=== PATIENT | male | born 1980 | race Two or more races ===

== ENCOUNTER 2017-03-28 18:43 | Observation (INO) | payer BC, OTHER ==
[~2017-03-28] VITALS: Ht 172.7 cm; Wt 72.0 kg
[2017-03-28 21:30] LABS: BASOPHILS # (AUTO) 0.04 x10^3/uL (0-0.1); BASOPHILS % (AUTO) 1 % (0-1); EOSINOPHILS # (AUTO) 0.24 x10^3/uL (0-0.4); EOSINOPHILS % (AUTO) 3 % (1-7); LYMPHOCYTES # (AUTO) 2.61 x10^3/uL (1-3.4); LYMPHOCYTES % (AUTO) 29 % (22-44); MD NO; MEAN PLATELET VOLUME 8.7 fL (7.4-10.4); MONOCYTES # (AUTO) 0.98 x10^3/uL (0.2-0.8); MONOCYTES % (AUTO) 11 % (2-9); NEUTROPHILS % (AUTO) 57 % (42-75); PLATELET COUNT 275 x10^3/uL (130-400); RED BLOOD COUNT 4.39 x10^6/uL (4.38-5.82); RED CELL DISTRIBUTION WIDTH 19.3 % (9.4-14.8)
[2017-03-28 21:42] LABS: ALBUMIN 3.7 g/dL (3.4-5.0); ANION GAP 9 mmol/L (5-15); CALCIUM 8.4 mg/dL (8.5-10.1); CHLORIDE 103 mmol/L (98-107); CREATININE 0.99 mg/dL (0.7-1.3)
[2017-03-28 21:43] LABS: ACETAMINOPHEN < 2 mcg/mL (10-30); SALICYLATE LEVEL < 1.7 mg/dL (2.8-20.0)
[2017-03-28 21:53] LABS: AMPHETAMINE SCREEN, URINE Negative (Negative); BARBITURATE SCREEN, URINE Negative (Negative); BENZODIAZEPINE SCREEN, URINE Positive (Negative); CANNABINOID SCREEN, URINE Negative (Negative); COCAINE SCREEN, URINE Negative (Negative); METHADONE SCREEN, URINE Negative (Negative); OPIATE SCREEN, URINE Negative (Negative)
[2017-03-28 23:24] LABS: MICROSCOPIC NOT IND
[2017-03-28 23:29] LABS: CULTURE INDICATED? NO
[2017-03-28 23:30] LABS: ALANINE AMINOTRANSFERASE 25 U/L (12-78); ALBUMIN 3.8 g/dL (3.4-5.0); ANION GAP 10 mmol/L (5-15); CHLORIDE 105 mmol/L (98-107); CREATININE 0.91 mg/dL (0.7-1.3)
[2017-03-28 23:33] LABS: ALKALINE PHOSPHATASE 75 U/L (45-117); BILIRUBIN,TOTAL 0.5 mg/dL (0.2-1.0); TOTAL PROTEIN 8.4 g/dL (6.4-8.2)
[2017-03-29] MEDS ORDERED: ZIPRASIDONE 20 MG INJ IM PRN (00:30)
[2017-03-29] MEDS ORDERED: DOCUSATE 100 MG CAPSULE PO PRN (00:30)
[2017-03-29] MEDS ORDERED: ONDANSETRON ODT 4 MG PO PRN (00:30)
[2017-03-29] MEDS ORDERED: ZIPRASIDONE 20MG CAPSULE PO PRN (00:30)
[2017-03-29] MEDS ORDERED: ACETAMINOPHEN 325 MG TABLET PO PRN (00:30)
[2017-03-29] MEDS ORDERED: ZIPRASIDONE 20MG CAPSULE ONE (01:48)
[2017-03-29] MEDS ORDERED: NICOTINE 14MG/24 HR PATCH.TD24 ONE (01:48)
[2017-03-29] MEDS: NICOTINE 14MG/24 HR PATCH.TD24 TD SCH (01:51)
[2017-03-29] MEDS ORDERED: CHLORDIAZEPOXIDE 10 MG CAPSULE PO PRN (08:00)
[2017-03-29] MEDS ORDERED: LORazepam 2 MG/ML, 1ML IV PRN (08:00)
[2017-03-29] MEDS ORDERED: HALOPERIDOL 5 MG/ML IM PRN (08:00)
[2017-03-29] MEDS ORDERED: CHLORDIAZEPOXIDE 25 MG CAPSULE PO PRN ×3 (08:00)
[2017-03-29] MEDS: MAGNESIUM CHLORIDE 64 MG TABLET.DR PO SCH ×3 (09:08→20:11)
[2017-03-29 18:05] VITALS: BP 149/93
[2017-03-29 19:06] VITALS: BP 128/75
[2017-03-29] MEDS: QUETIAPINE 25MG TABLET PO PRN (19:39)
[2017-03-30] MEDS: NICOTINE 14MG/24 HR PATCH.TD24 TD SCH ×2 (00:30→06:09)
[2017-03-30] MEDS: MAGNESIUM CHLORIDE 64 MG TABLET.DR PO SCH ×3 (08:10→20:07)
[2017-03-30 08:16] VITALS: BP 121/75
[2017-03-30] MEDS ORDERED: LORazepam 0.5MG TABLET ONE (13:57)
[2017-03-30] MEDS ORDERED: LORazepam 0.5MG TABLET PO PRN (14:00)
[2017-03-30 19:44] VITALS: BP 132/82
[2017-03-30] MEDS: QUETIAPINE 25MG TABLET PO PRN (20:08)
== END 2017-03-30 22:30 ==
LOC: ED 19:38 → INTOOBSV 03-29 00:16 → SUATTDRO 03-29 00:16 → EDIP 03-29 00:16 → 2N 03-29 17:48
PROVIDERS: ADMIT Family Medicine; ATTEND Family Medicine
DX: F23 Brief psychotic disorder (principal); R44.0 Auditory hallucinations; F31.9 Bipolar disorder, unspecified; F10.239 Alcohol dependence with withdrawal, unspecified; F17.200 Nicotine dependence, unspecified, uncomplicated
CPT/HCPCS: 36415; 80048; 80053; 80307; 80329; 81003; 82040; 82140; 85025; 99285; G0378; G0480